=== PATIENT | female | born 1975 ===

== ENCOUNTER 2021-09-29 14:05 | Emergency (ER) | payer MEDICAID ==
[~2021-09-29] VITALS: Ht 154.9 cm; Wt 70.5 kg
[2021-09-29 14:10] VITALS: BP 135/63
== END 2021-09-29 17:27 | disposition left against medical advice (07) ==
LOC: ER 14:06
DX: R51.9 Headache, unspecified (principal); Z53.21 Procedure and treatment not carried out due to patient leaving prior to being seen by health care provider